=== PATIENT | female | born 1960 | race Caucasian/White ===

== ENCOUNTER 2025-02-25 15:38 | Outpatient (CLI) | payer MEDICARE, OTHER | END 2025-02-25 15:39 | disposition home or self-care (01) | LOC: CSHCT 15:38 | PROVIDERS: ATTEND Orthopaedic Surgery | DX: Z01.818 Encounter for other preprocedural examination (principal); M17.11 Unilateral primary osteoarthritis, right knee | CPT/HCPCS: 71046 ==